=== PATIENT | female | born 1955 | race American Indian/Alaskan Native ===

== ENCOUNTER 2021-10-11 12:34 | Emergency (ER) | payer BC ==
--- NOTE | 2021-10-11 15:01 | Emergency Department Report ---
ED General Adult HPI - General Chief complaint: Fall Stated complaint: FALL Time Seen by Provider: 10/11/21 14:46 Source: patient Mode of arrival: Ambulatory Limitations: No Limitations - History of Present Illness Initial comments: 66-year-old -[place] female patient with history of hypertension and diabetes presents with complaints of posterior headache after a fall injury yesterday. Patient states she slipped and fell hitting her head on the ground in the kitchen. She denies any preceding symptoms or loss of consciousness. She also denies any nausea/vomiting, dizziness, vision changes, numbness/tingling/weakness in her limbs, difficulty with speech/ambulation, confusion, or memory loss. She states the headache is mild and rates it as a 3/10 in severity. Headache improves with Aleve per patient. She denies being on blood thinners. She states she is otherwise feeling well and denies any joint pains or neck pain - Related Data Previous Rx's Medication Instructions Recorded Last Taken Type Aspirin 325 mg PO QDAY tablet 09/21/15 Unknown Rx AtorvaSTATin [Lipitor] 40 mg PO QHS #30 tablet 09/21/15 Unknown Rx Famotidine [Pepcid] 20 mg PO BID #60 tablet 09/21/15 Unknown Rx Insulin NPH/Regular [NovoLIN 70/30] 18 unit SUB-Q BIDDIAB 30 Days 09/21/15 Unknown Rx units Insulin Regular, Human [HumuLIN R] 1 units IV ACHS 30 Days units 09/21/15 Unknown Rx Metoprolol [Lopressor TAB] 50 mg PO Q8HR #90 tablet 09/21/15 Unknown Rx lisinopriL [Zestril TAB] 20 mg PO QDAY #30 tablet 09/21/15 Unknown Rx Ibuprofen [Motrin] 600 mg PO Q8H PRN #15 tablet 10/11/21 Unknown Rx Allergies Allergy/AdvReac Type Severity Reaction Status Date / Time No Known Allergies Allergy Verified 09/17/15 18:59 ED Review of Systems ROS: Stated complaint: FALL Other details as noted in HPI Constitutional: denies: chills, diaphoresis, fever, malaise, weakness Respiratory: denies: shortness of breath Cardiovascular: denies: chest pain Gastrointestinal: denies: nausea, vomiting Neurological: denies: weakness, numbness, paresthesias, confusion, abnormal gait, vertigo Hematological/Lymphatic: denies: easy bleeding ED Past Medical Hx - Past Medical History Hx Hypertension: Yes Hx Heart Attack/AMI: No Hx Congestive Heart Failure: No Hx Diabetes: Yes Hx Arthritis: Yes (ankle) Hx Asthma: No Hx COPD: No Hx HIV: No - Social History Smoking Status: Never Smoker - Medications Home Medications: Home Medications Medication Instructions Recorded Confirmed Last Taken Type Aspirin 325 mg PO QDAY tablet 09/21/15 Unknown Rx AtorvaSTATin [Lipitor] 40 mg PO QHS #30 tablet 09/21/15 Unknown Rx Famotidine [Pepcid] 20 mg PO BID #60 tablet 09/21/15 Unknown Rx Insulin NPH/Regular [NovoLIN 70/30] 18 unit SUB-Q BIDDIAB 30 Days 09/21/15 Unknown Rx units Insulin Regular, Human [HumuLIN R] 1 units IV ACHS 30 Days units 09/21/15 Unknown Rx Metoprolol [Lopressor TAB] 50 mg PO Q8HR #90 tablet 09/21/15 Unknown Rx lisinopriL [Zestril TAB] 20 mg PO QDAY #30 tablet 09/21/15 Unknown Rx Ibuprofen [Motrin] 600 mg PO Q8H PRN #15 tablet 10/11/21 Unknown Rx ED Physical Exam - General Limitations: No Limitations General appearance: alert, in no apparent distress - Head Head exam: Present: atraumatic, normocephalic - Eye Eye exam: Present: normal appearance, PERRL, EOMI. Absent: scleral icterus - Neck Neck exam: Present: normal inspection, full ROM. Absent: tenderness - Respiratory Respiratory exam: Present: normal lung sounds bilaterally. Absent: respiratory distress - Cardiovascular Cardiovascular Exam: Present: regular rate, normal rhythm - Extremities Exam Extremities exam: Present: full ROM - Back Exam Back exam: Present: normal inspection - Neurological Exam Neurological exam: Present: alert, oriented X3, CN II-XII intact, normal gait. Absent: motor sensory deficit - Expanded Neurological Exam Expanded Cerebellar function: Finger to Nose: Normal, Heel to Baugh: Normal, Romberg: Normal Sensory exam: Upper Extremity Light Touch: Normal, Lower Extremity Light Touch: Normal Motor strength exam: RUE: 4, LUE: 4, RLE: 4, LLE: 4 Best Eye Response (Nidhi): (4) open spontaneously Best Motor Response (Nidhi): (6) obeys commands Best Verbal Response (Nidhi): (5) oriented Nidhi Total: 15 - Psychiatric Psychiatric exam: Present: normal affect, normal mood - Skin Skin exam: Present: warm, dry, intact, normal color. Absent: rash ED Course Vital Signs 10/11/21 13:23 Temperature 98.9 F Pulse Rate 105 H Respiratory 19 Rate Blood Pressure 142/92 O2 Sat by Pulse 99 Oximetry ED Medical Decision Making - Medical Decision Making 66-year-old -[place] female patient with history of hypertension and diabetes presents with complaints of posterior headache after a fall injury yesterday. Patient states she slipped and fell hitting her head on the ground in the kitchen. She denies any preceding symptoms or loss of consciousness. She also denies any nausea/vomiting, dizziness, vision changes, numbness/tingling/weakness in her limbs, difficulty with speech/ambulation, confusion, or memory loss. She states the headache is mild and rates it as a 3/10 in severity. Headache improves with Aleve per patient. She denies being on blood thinners. She states she is otherwise feeling well and denies any joint pains or neck pain Physical exam and neuro exam is normal. No cervical tenderness or decreased range of motion of the cervical spine noted on exam. CT head not indicated via [place] CT head rules. Discussed possible minor concussion and importance of brain rest and follow-up with primary care in 2 to 3 days. Also discussed in detail signs and symptoms that should prompt immediate return to the ED with patient, she verbalizes understanding. She is otherwise well-appearing, her vitals are within normal limits, she is stable for discharge home. Patient requests prescription for Motrin to use as needed for the headache Critical care attestation.: If time is entered above; I have spent that time in minutes in the direct care of this critically ill patient, excluding procedure time. ED Disposition Clinical Impression: Fall, Head injury, Headache, post-traumatic, acute Disposition: HOME / SELF CARE / HOMELESS Is pt being admited?: No Condition: Stable Instructions: Head Injury, Adult, Concussion, Adult, [id number] Prescriptions: Ibuprofen [Motrin] 600 mg PO Q8H PRN #15 tablet PRN Reason: Pain Referrals: PRIMARY CARE, [Primary Care Provider] - 2-3 Days
[2021-10-11 15:20] VITALS: BP 142/91
== END 2021-10-11 15:20 | disposition home or self-care (01) ==
LOC: ED 12:34
DX: S09.90XA Unspecified injury of head, initial encounter (principal); F43.10 Post-traumatic stress disorder, unspecified; E11.9 Type 2 diabetes mellitus without complications; M19.90 Unspecified osteoarthritis, unspecified site; I10 Essential (primary) hypertension; Z79.4 Long term (current) use of insulin; Z79.82 Long term (current) use of aspirin; Z79.899 Other long term (current) drug therapy; W18.39XA Other fall on same level, initial encounter; Y93.89 Activity, other specified; Y92.89 Other specified places as the place of occurrence of the external cause; Y99.8 Other external cause status
CPT/HCPCS: 99282